=== PATIENT | male | born 1970 | race Caucasian/White ===

== ENCOUNTER → 2023-03-22 10:38 | Outpatient (BNVA) | payer SELFPAY | PROVIDERS: Referring Provider Dermatology; Visit Provider Orthopaedic Surgery | DX: M16.12 Unilateral primary osteoarthritis, left hip (principal) | CPT/HCPCS: 73502 ==

== ENCOUNTER 2024-11-28 08:11 | Emergency (ER) | payer OTHER, SELFPAY ==
--- NOTE | 2024-11-28 08:13 | ECG_ITS ---
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
[2024-11-28 08:14] VITALS: PULSE 84; RESP 18; TEMP 36.7; O2SAT 98; BMI 52.2
[2024-11-28 08:20] VITALS: BP 190/100
--- NOTE | 2024-11-28 08:21 | XRR_ITS ---
PROCEDURE INFORMATION: Exam: XR Chest Exam date and time: 11/28/2024 8:25 AM Age: 54 years old Clinical indication: Cough and dyspnea; Additional info: Dyspnea/cough TECHNIQUE: Imaging protocol: Radiologic exam of the chest. Views: 1 view. COMPARISON: No relevant prior studies available. FINDINGS: Lungs: Unremarkable. No consolidation. Pleural spaces: Unremarkable. No pleural effusion. No pneumothorax. Heart/Mediastinum: The heart is slightly enlarged. Bones/joints: Unremarkable. XR/XR chest 1V portable [id number] IMPRESSION: 1. Mild cardiomegaly.
[2024-11-28 08:29] LABS: Basophils # 0.1 10^3/uL (0.0-0.1); Basophils % 0.5 %; Eosinophils # 0.2 10^3/uL (0.0-0.8); Eosinophils % 1.6 %; Hematocrit 43.4 % (37-53); Lymphocytes # 3.5 10^3/uL (0.8-4.8); Lymphocytes % 23.7 %; Mean Corpuscular HGB Conc 31.3 g/dL (30-55); Mean Corpuscular Hemoglobin 27.4 pg (27-33); Mean Corpuscular Volume 87.3 fl (82-101); Mean Platelet Volume 9.2 fL (7.4-10.4); Monocytes % 6.7 %; Neutrophils # 9.61 10^3/uL (1.8-7.7); Neutrophils % 65.3 %; Nucleated Red Blood Cells % 0 %; Platelet Count 369 10^3/cmm (157-399); Red Blood Count 4.97 10^6/uL (3.85-5.65); Red Cell Distribution Width 14.7 % (12.1-15.1); White Blood Count 14.72 10^3/uL (3.29-11.43)
--- NOTE | 2024-11-28 08:32 | W.ED.CHESTPA ---
HPI - Chest Pain General: Chief Complaint: Chest Pain Stated Complaint: chest pain Time Seen by Provider: 11/28/24 08:20 History of Present Illness: 54-year-old male presents emergency room he has had chest pain for the last several weeks. He states it radiates across the right side of her chest into his right arm is worse when he takes a deep breath worse when he moves. He is a very sharp pain. No known history of coronary artery disease although he is impaired glucose tolerance and vapes. No fever sweats or chills no productive cough no hemoptysis. No history of DVT or PE. Associated symptoms: Deny abdominal pain, dyspnea or fever(s) Related Data Home Medications ?Medication ?Instructions ?Recorded ?Confirmed pregabalin 100 mg capsule (Lyrica) 100 mg PO DAILY 03/22/23 11/28/24 ibuprofen 200 mg tablet 200 mg PO Q6H PRN Pain 11/28/24 11/28/24 rosuvastatin 10 mg tablet 10 mg PO DAILY 11/28/24 11/28/24 Previous Rx's ?Medication ?Instructions ?Recorded diclofenac sodium 75 mg 75 mg PO Q12H PRN pain #20 tabs 11/28/24 tablet,delayed release hydrocodone 5 mg-acetaminophen 325 1 tab PO Q6H PRN pain #25 tabs 11/28/24 mg tablet prednisone 20 mg tablet 20 mg PO TID #15 tabs 11/28/24 Allergies Allergy/AdvReac Type Severity Reaction Status Date / Time erythromycin base Allergy nausea Verified 03/22/23 10:26 Penicillins Allergy nausea Verified 03/22/23 10:26 Review of Systems Const: Denies: fever(s) or chills Card: Denies: chest pain Resp: Denies: dyspnea GI: Denies: abdominal pain : Denies: dysuria, urinary frequency or urinary urgency Musc: Denies: neck pain or back pain Skin/Breast: Denies: rash PFSH ED PFSH: Social History Smoking and tobacco/nicotine status: never used tobacco/nicotine Physical Exam Const: GENERAL APPEARANCE: cooperative ORIENTATION/CONSCIOUSNESS: Yes awake, Yes oriented to person, Yes oriented to place and Yes oriented to time HENMT: COMMON NORMALS: normocephalic, atraumatic and hearing grossly normal bilaterally HEAD & SCALP: normocephalic and atraumatic Resp: COMMON NORMALS: normal respiratory effort, No retractions, No use of accessory muscles and clear to auscultation bilaterally AUSCULTATION: clear to auscultation bilaterally Cardio: COMMON NORMALS: regular rate, regular rhythm and No murmurs present (Cardio) RATE: regular rate RHYTHM: regular rhythm GI: COMMON NORMALS: Soft to palpation and No hepatosplenomegaly present AUSCULTATION: Yes normoactive bowel sounds PALPATION: Yes Soft to palpation, No Tenderness to palpation present (GI), No Guarding due to palpation present (GI) and Yes No hepatosplenomegaly present Extremity: COMMON NORMALS: normal to inspection, capillary refill normal, no clubbing, cyanosis or edema, no calf tenderness and no pedal edema Neuro: SENSORIUM/ORIENTATION: Yes oriented to person, Yes oriented to place and Yes oriented to time Skin: COMMON NORMALS: no rashes or lesions noted GENERAL SKIN EXAM: no rashes or lesions noted Course Vital Signs: Vital signs: Vital Signs Temperature 98.1 F 11/28/24 08:14 Pulse Rate 59 L 11/28/24 12:35 Respiratory Rate 17 11/28/24 08:39 Blood Pressure 139/73 11/28/24 12:35 Pulse Oximetry 99 11/28/24 12:35 Oxygen Delivery Me thod Room Air 11/28/24 11:00 MDM - Chest Pain Medical Decision Making Sharp chest pain when patient first arrived. Relieved by narcotics. Very concerned about possible PE or empyema white count is slightly elevated no sign of either PE or empyema however there is multiple lung nodules and a soft tissue mass on the upper portion of the sternum that is eroded through the sternum. It is extends into the anterior mediastinum. Per radiology suspicious for metastatic disease sarcoma chondrosarcoma or osteosarcoma. There is also a T4 sclerotic sclerotic lesion. There is a left thyroid mass extending into the upper mediastinum with a thyroid nodule or mass of 5.3 x 3.5 cm. Reviewed with the patient. Will refer for biopsy discussed with Dr. Nickerson he believes they can biopsy his mass. He we will he will also be referred oncology for follow-up on the pathology result from the biopsy and for possible PET scan to eval for any other occult tumors. Medical Records I reviewed the patient's medical records. Lab Data I reviewed the patient's lab results. 11/28/24 08:21 11/28/24 08:21 Radiology Impressions Chest X-Ray 11/28/24 08:21 IMPRESSION: 1. Mild cardiomegaly. Chest CTA 11/28/24 09:12 IMPRESSION: 1. Destructive soft tissue lesion involving the sternum with expansile soft tissue component described above. This extends into the anterior mediastinum and anterior chest soft tissues. Findings suspicious for neoplasm and considerations include metastatic disease, sarcoma, chondrosarcoma, and osteosarcoma. 2. Several subcentimeter pulmonary nodules the largest measuring 7 8 mm subpleural LEFT upper lobe. 3. LEFT thyroid mass extending into the upper mediastinum with LEFT RIGHT mass effect on the trachea which remains patent. Thyroid nodule/mass measures 5.3 x 3.5 cm 4. Sclerotic lesion T4 vertebral body is indeterminate. Metastatic disease not excluded considering the sternal mass. Notified Jose De Leon DO at 11/28/2024 10:22 AM. Abdomen/Pelvis CT 11/28/24 10:12 IMPRESSION: 1. Cholelithiasis. 2. Incidental fat-containing umbilical hernia. 3. Hepatomegaly. 4. Small esophageal hiatal hernia. 5. No adenopathy in the abdomen or pelvis. 6. Noncalcified nodules in the RIGHT middle lobe and lung bases described on the chest CT Laboratory Results WBC 14.72 10^3/uL (3.29-11.43) H 11/28/24 08:21 RBC 4.97 10^6/uL (3.85-5.65) 11/28/24 08:21 Hgb 13.60 g/dL (11.27-16.99) 11/28/24 08:21 Hct 43.4 % (37-53) 11/28/24 08:21 MCV 87.3 fl (82-101) 11/28/24 08:21 MCH 27.4 pg (27-33) 11/28/24 08:21 MCHC 31.3 g/dL (30-55) 11/28/24 08:21 RDW 14.7 % (12.1-15.1) 11/28/24 08:21 Plt Count 369 10^3/cmm (157-399) 11/28/24 08:21 MPV 9.2 fL (7.4-10.4) 11/28/24 08:21 Neut % (Auto) 65.3 % 11/28/24 08:21 Lymph % (Auto) 23.7 % 11/28/24 08:21 [place] % (Auto) 6.7 % 11/28/24 08:21 Eos % (Auto) 1.6 % 11/28/24 08:21 Baso % (Auto) 0.5 % 11/28/24 08:21 Neut # (Auto) 9.61 10^3/uL (1.8-7.7) H 11/28/24 08:21 Lymph # (Auto) 3.5 10^3/uL (0.8-4.8) 11/28/24 08:21 [place] # (Auto) 1.0 10^3/uL (0.2-0.9) H 11/28/24 08:21 Eos # (Auto) 0.2 10^3/uL (0.0-0.8) 11/28/24 08:21 Baso # (Auto) 0.1 10^3/uL (0.0-0.1) 11/28/24 08:21 Nucleated RBC % (auto) 0 % 11/28/24 08:21 Nucleated RBCs # 0.0 /100WBC 11/28/24 08:21 Sodium 141 mmol/L (136-145) 11/28/24 08:21 Potassium 3.9 mmol/L (3.5-5.1) 11/28/24 08:21 Chloride 104 mmol/L (98-107) 11/28/24 08:21 Carbon Dioxide 22 mmol/L (22-29) 11/28/24 08:21 Anion Gap 18.9 (5-19) 11/28/24 08:21 BUN 17 mg/dL (6-20) 11/28/24 08:21 Creatinine 0.7 mg/dL (0.7-1.2) 11/28/24 08:21 GFR Calculation 118.0 mL/min (90-130) 11/28/24 08:21 Glucose 143 mg/dL (65-115) H 11/28/24 08:21 Calculated Osmolality 296 mOsm/kg (285-295) H 11/28/24 08:21 Calcium 9.5 mg/dL (8.5-10.5) 11/28/24 08:21 Total Bilirubin 0.3 mg/dL (0.15-1.2) 11/28/24 08:21 AST 11 U/L (0-40) 11/28/24 08:21 ALT 23 U/L (0-41) 11/28/24 08:21 Alkaline Phosphatase 146 U/L (40-130) H 11/28/24 08:21 Troponin T Baseline 9 ng/L (0-15) 11/28/24 08:21 Troponin T 120 Minute 7.42 ng/L (0-15) 11/28/24 10:25 Delta Troponin T -1.58 ABS# (0-10) L 11/28/24 10:25 C-Reactive Protein 19.0 mg/L (0.0-4.9) H 11/28/24 08:21 Total Protein 7.9 g/dL (6.6-8.7) 11/28/24 08:21 Albumin 4.4 g/dL (3.5-5.2) 11/28/24 08:21 Globulin 3.5 g/dL (1.3-4.6) 11/28/24 08:21 Urine Color Yellow (Yellow) 11/28/24 08:47 Urine Appearance Clear (CLEAR) 11/28/24 08:47 Urine pH 6.0 (5-7) 11/28/24 08:47 Ur Specific [place] 1.015 (1.005-1.030) 11/28/24 08:47 Urine Protein Negative (Negative) 11/28/24 08:47 Urine Glucose (UA) Negative (Normal) 11/28/24 08:47 Urine Ketones Negative (Negative) 11/28/24 08:47 Urine Blood Negative (Negative) 11/28/24 08:47 Urine Nitrate Negative (Negative) 11/28/24 08:47 Urine Bilirubin Negative (Negative) 11/28/24 08:47 Urine Urobilinogen 0.2 mg/dL (Negative) 11/28/24 08:47 Ur Leukocyte Esterase Negative (Negative) 11/28/24 08:47 Amorphous Sediment Not Reportable 11/28/24 08:47 Influenza A (PCR) Negative (Negative) 11/28/24 09:16 Influenza Type B (PCR) Negative (Negative) 11/28/24 09:16 RSV (PCR) Negative (Negative) 11/28/24 09:16 SARS-CoV-2 (PCR) Negative (Negative) 11/28/24 09:16 All radiology interpretation(s) finalized by discharge Discharge Plan Discharge Patient Disposition: Home Clinical Impression: Sternal mass, Atypical chest pain, Thyroid mass Condition: Stable Prescriptions: New hydrocodone-acetaminophen 5-325 mg tablet 1 tab PO Q6H PRN (Reason: pain) Qty: 25 0RF prednisone 20 mg tablet 20 mg PO TID Qty: 15 0RF Rx Instructions: 1 p.o. 3 times daily x3 days, 1 p.o. twice daily x2 days, 1 p.o. daily x2 days diclofenac sodium 75 mg tablet,delayed release (DR/EC) 75 mg PO Q12H PRN (Reason: pain) Qty: 20 0RF No Action pregabalin [Lyrica] 100 mg capsule 100 mg PO DAILY rosuvastatin 10 mg tablet 10 mg PO DAILY ibuprofen 200 mg Tablet 200 mg PO Q6H PRN (Reason: Pain) Discharge Orders: Discharge ED (Routine); Ordered 11/28/24 Ordered By: Jose De Leon Discharge Diet: Usual diet Discharge Activity: Resume usual activity Patient Instructions: Opioid Safety, Pain Management Activity Restrictions/Additional Instructions: Thank you for choosing [facility] for your healthcare needs today. It is very important that you follow up as instructed or that you return to the Emergency Department should you have concerns or if your condition changes or worsens in any way. You were seen in the emergency room for chest pain. Labs imaging and EKGs were done. There is no sign of acute coronary syndrome no sign of pneumonia pneumothorax or dissection of an aneurysm. There is a mass on the upper portion of the sternum. This will need to be biopsy. Case management is making arrangements for you to have an outpatient guided biopsy of this lesion as well as seeing oncology for further evaluation and follow-up on the biopsy. You are given pain medications to use today. Print Language: Serbian Coding Level of Care Code ED Fund Accounting Manager for [employer]
[2024-11-28] MEDS: aspirin 81 mg Chew Tablet 324 MG PO (08:35)
[2024-11-28] MEDS: ketorolac 30 mg/mL INJ IVP (08:37)
[2024-11-28 08:39] VITALS: RESP 17; O2SAT 97
[2024-11-28] MEDS: morphine 4 mg/mL SDV 1 mL IVP (08:39)
[2024-11-28] MEDS: ondansetron 2 mg/ML SDV 2 mL 4 MG IVP (08:40)
[2024-11-28 08:49] LABS: Alanine Aminotransferase 23 U/L (0-41); Albumin Level 4.4 g/dL (3.5-5.2); Alkaline Phosphatase 146 U/L (40-130); Anion Gap 18.9 (5-19); Aspartate Amino Transferase 11 U/L (0-40); Blood Urea Nitrogen 17 mg/dL (6-20); Calcium 9.5 mg/dL (8.5-10.5); Carbon Dioxide 22 mmol/L (22-29); Chloride 104 mmol/L (98-107); Creatinine Clr Calc Pharmacy 167.5537; Globulin 3.5 g/dL (1.3-4.6); Glucose 143 mg/dL (65-115); Osmolality Calculated 296 mOsm/kg (285-295); Potassium 3.9 mmol/L (3.5-5.1); Sodium 141 mmol/L (136-145); Total Bilirubin 0.3 mg/dL (0.15-1.2); Total Protein 7.9 g/dL (6.6-8.7)
[2024-11-28 08:51] LABS: Troponin(5th) Baseline 9 ng/L (0-15)
[2024-11-28 08:52] LABS: Add Urine Microscopic? NO
[2024-11-28 09:01] LABS: Bilirubin Urine Negative (Negative); Blood Urine Negative (Negative); Glucose Urine UA Negative (Normal); Ketones Urine Negative (Negative); Leukocyte Esterase Urine Negative (Negative); Nitrate Urine Negative (Negative); Protein Urine Negative (Negative); Specific Gravity, Urine 1.015 (1.005-1.030); Urine Appearance Clear (CLEAR); Urine Color Yellow (Yellow); Urobilinogen Urine 0.2 mg/dL (Negative)
[2024-11-28 09:11] LABS: Add Urine Culture? No
--- NOTE | 2024-11-28 09:12 | CT_ITS ---
WS: [id number] CTA OF THE CHEST WITH PULMONARY EMBOLISM PROTOCOL TECHNIQUE: High-resolution contrast enhanced CTA of the chest with coronal and sagittal reformatted images with pulmonary embolism protocol. MIP images are also reviewed. CLINICAL INFORMATION: Chest pain COMPARISON: None. DLP: 580.[address] scans at [facility] use at least one of these dose optimization techniques: automated exposure control; mA and/or kV adjustment per patient size (includes targeted exams where dose is matched to clinical indication); or iterative reconstruction. FINDINGS: Destructive soft tissue lesion involving the sternum extending into the anterior mediastinum. This measures approximately 4.3 x 4.4 cm. Proximal main pulmonary arteries are normal. Normal segmental and subsegmental pulmonary arteries. No evidence of pulmonary embolus. Normal caliber thoracic aorta. Mild aortic calcification. No mediastinal or hilar lymphadenopathy. LEFT thyroid nodule measuring 5.3 x 3.5 cm with LEFT to RIGHT mass effect on the airway at the thoracic inlet which remains patent. Lungs are well aerated. No acute pulmonary infiltrates. Several noncalcified pulmonary nodules largest in the LEFT upper lobe subpleural measuring 8 mm. Noncalcified nodules in the RIGHT middle lobe measuring 5 to 6 mm. A few additional tiny noncalcified nodules LEFT upper lobe. Additional subcentimeter nodules LEFT lower lobe. No mediastinal or hilar lymphadenopathy. No axillary lymphadenopathy. Sclerotic lesion in the T4. CT/CT angio chest PE protcl [id number] IMPRESSION: 1. Destructive soft tissue lesion involving the sternum with expansile soft ti ssue component described above. This extends into the anterior mediastinum and anterior chest soft tissues. Findings suspicious for neoplasm and consideration s include metastatic disease, sarcoma, chondrosarcoma, and osteosarcoma. 2. Several subcentimeter pulmonary nodules the largest measuring 7 8 mm subple ural LEFT upper lobe. 3. LEFT thyroid mass extending into the upper mediastinum with LEFT RIGHT mass effect on the trachea which remains patent. Thyroid nodule/mass measures 5.3 x 3.5 cm 4. Sclerotic lesion T4 vertebral body is indeterminate. Metastatic disease not excluded considering the sternal mass. Notified Jose De Leon DO at 11/28/2024 10:22 AM.
[2024-11-28 09:13] LABS: Charge for UA Resulting for Rev
[2024-11-28 09:15] VITALS: BP 123/69; PULSE 57; O2SAT 93
[2024-11-28] MEDS: iohexol 350 mg/mL 500 mL Btl (per mL) IV ×2 (09:28→10:50)
--- NOTE | 2024-11-28 10:12 | CT_ITS ---
WS: [id number] CT ABDOMEN PELVIS TECHNIQUE: Contrast-enhanced CT of the abdomen and pelvis with coronal and sagittal reformatted images. CLINICAL INFORMATION: abd pain COMPARISON: None. DLP: 1259.[address] scans at [facility] use at least one of these dose optimization techniques: automated exposure control; mA and/or kV adjustment per patient size (includes targeted exams where dose is matched to clinical indication); or iterative reconstruction. FINDINGS: Hepatomegaly. Cholelithiasis with laminated large gallbladder calculus measuring 3.5 cm. No gallbladder wall thickening or pericholecystic fluid. Tiny esophageal hernia. Normal pancreatic parenchymal enhancement. Normal portal vein and splenic vein. Adrenal glands are normal. Bilateral renal cysts. No hydronephrosis in either kidney. Normal caliber abdominal aorta. No lymphadenopathy in the abdomen or pelvis. Fat-containing umbilical hernia. LEFT CHENG degrades images in the pelvis. Normal sigmoid colon. Normal appendix. No inguinal lymphadenopathy. CT/CT abdomen pelvis w con* [id number] IMPRESSION: 1. Cholelithiasis. 2. Incidental fat-containing umbilical hernia. 3. Hepatomegaly. 4. Small esophageal hiatal hernia. 5. No adenopathy in the abdomen or pelvis. 6. Noncalcified nodules in the RIGHT middle lobe and lung bases described on t he chest CT
[2024-11-28 10:15] LABS: Influenza A NEGATIVE (Negative); Influenza B NEGATIVE (Negative); Respiratory Syncytial Virus Ce NEGATIVE (Negative); SARS-CoV-2 PCR NEGATIVE (Negative)
--- NOTE | 2024-11-28 10:21 | ECG_ITS ---
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
[2024-11-28 10:55] LABS: Troponin 5 2HR 7.42 ng/L (0-15)
[2024-11-28 10:57] LABS: Troponin 5 2HR Delta -1.58 ABS# (0-10)
[2024-11-28 11:00] VITALS: BP 134/86; PULSE 54; O2SAT 95
[2024-11-28] MEDS: HYDROMORPHONE HCL 0.5 MG/0.5 ML INJ IVP (12:26)
[2024-11-28 12:35] VITALS: BP 139/73; PULSE 59; O2SAT 99
--- NOTE | 2024-11-28 12:41 | DCPLANNER ---
Message sent to Oncology- Spoke with Izzy- She requested to submit through message and task.
--- NOTE | 2024-11-29 08:29 | DCPLANNER ---
faxed us bx order to scheduling for sternal mass and messaged onc
== END 2024-11-28 12:37 | disposition home or self-care (01) ==
PROVIDERS: Emergency Provider Family Medicine; PCP Family Medicine
DX: R22.2 Localized swelling, mass and lump, trunk (principal); R07.89 Other chest pain; E07.89 Other specified disorders of thyroid; Z11.52 Encounter for screening for COVID-19
CPT/HCPCS: 36415; 71045; 71275; 74177; 80053; 81003; 84484; 85025; 86140; 87637; 93005; 96374; 96375; 99285; J1171; J1885; J2270; J2405